=== PATIENT | male | born 1960 | race Two or more races ===

== ENCOUNTER 2020-06-05 17:29 | Emergency (ER) | payer MEDICAID ==
[~2020-06-05] VITALS: Ht 175.3 cm; Wt 99.8 kg
--- NOTE | 2020-06-05 17:45 | NUR ---
ED Nurse Note: Pt walked in from home c/o generalized body aches, SOB, and chills that started today. Respirations even and unlabord on room air. O2 saturation 96%. HR 105. All other vitals stable as documented. A+Ox4, speaking in full sentences.
[2020-06-05 17:48] VITALS: BP 155/88
[2020-06-05 18:05] VITALS: BP 148/84
--- NOTE | 2020-06-05 18:05 | NUR ---
ED Nurse Note: Pt cleared by health care Provider for discharge. DC instructions were given and explained to pt and verbalized understanding of teachings. All medical deviecs such as ID band removed. Pt is AAO x4, ambulatory and left with all personal belongings.
--- NOTE | 2020-06-05 18:14 | Emergency Room Report ---
History of Present Illness General Chief Complaint: Flu Like Symptoms Source: Patient Present Illness HPI Disclaimer: Please note that this report is being documented using [employer] technology. This can lead to erroneous entry secondary to incorrect interpretation by the dictating instrument. HPI: 60-year-old male presents with flulike symptoms. He has a history of hypertension but has been noncompliant with his medications for the past week. Today he noticed some body aches chills and a cough. Mild runny nose. No vomiting no shortness of breath denies chest pain. He denies any sick contacts. Afebrile on arrival. 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 Patient History Reviewed Nursing Documentation: PMH: Agreed; PSxH: Agreed Nursing Documentation-PMH Past Medical History: No History, Except For Hx Cardiac Problems: Yes - NE Hx Hypertension: Yes Review of Systems All Other Systems: negative except mentioned in HPI Physical Exam Vital Signs Date Time Temp Pulse Resp B/P (MAP) Pulse Ox O2 Delivery O2 Flow Rate FiO2 06/05/20 17:36 99.0 106 20 158/90 (112) 96 Room Air Sp02 EP Interpretation: reviewed, normal General Appearance: well appearing, no apparent distress Head: normocephalic, atraumatic Eyes: bilateral eye PERRL, bilateral eye EOMI ENT: hearing grossly normal, moist mucus membranes Neck: full range of motion, supple Respiratory: lungs clear, normal breath sounds, no rhonchi, no respiratory distress, no retraction, no wheezing Cardiovascular #1: normal peripheral pulses, regular rate, rhythm, no murmur Gastrointestinal: non tender, soft, non-distended, no guarding Neurologic: alert, oriented x3, no focal defects Skin: normal color, warm/dry Medical Decision Making Diagnostic Impression: Primary Impression: Viral syndrome ER Course Patient presented for flulike symptoms. Differential included COVID-19, viral syndrome, bronchitis to name a few. He was also noncompliant with his lisinopril and amlodipine for the past 1 week. He had no chest pain he was nontoxic-appearing. As patient does have symptoms of COVID-19 I did recommend home quarantine until he is able to have testing completed. He was referred to [facility] testing as well as additional testing centers. He was not hypoxic, he was in no acute distress, I do not believe he requires further diagnostic testing in the ER or admission to the hospital. I did recommend for him to restart his home medications as previously prescribed. He has them with him but has been noncompliant because he states "I do not like to take pills "patient stable for discharge with return precautions. Last Vital Signs Date Time Temp Pulse Resp B/P (MAP) Pulse Ox O2 Delivery O2 Flow Rate FiO2 06/05/20 17:48 105 20 Room Air 06/05/20 17:48 99.0 155/88 97 Disposition: HOME, SELF-CARE Condition: Stable Patient Instructions: Viral Respiratory Infection, [id number] Additional Instructions: [email or web address] We are treating you for presumed covid-19. Please stay at home at least 7 days have passed after the symptoms first. And at least 3 days after you have recovered. Recovery means that fever has been gone for 72 hours without the use of fever reducing medications and your cough and shortness of breath have improved. Please do not leave your home during this time except to seek urgent medical care. All of your close contacts should be quarantined at home at least 14 days since last contact with yourself. Cortes Killian M.D. Jun 05, 2020 18:14
== END 2020-06-05 18:05 | disposition home or self-care (01) ==
LOC: EMR 17:49
DX: B34.9 Viral infection, unspecified (principal); I10 Essential (primary) hypertension; I25.2 Old myocardial infarction
CPT/HCPCS: 99281